=== PATIENT | male | born 1965 | race Hispanic/Latino ===

== ENCOUNTER → 2023-08-27 | Outpatient (CLI) | payer OTHER | END | disposition home or self-care (01) | LOC: OIH 07:42 | PROVIDERS: ATTEND Nurse Practitioner Adult Health | DX: Z13.6 Encounter for screening for cardiovascular disorders (principal) | CPT/HCPCS: 75571 ==

== ENCOUNTER → 2024-11-21 | Outpatient (CLI) | payer BC ==
[2024-11-21 09:34] LABS: CREATININE 1.1 mg/dL (0.5-1.3); GLOMERULAR FILTR. RATE CALC 78.0 mL/min (>90); UREA NITROGEN, BLOOD 18.0 mg/dL (7-18)
== END | disposition home or self-care (01) ==
LOC: LAB 08:07
PROVIDERS: ATTEND Internal Medicine Gastroenterology
DX: R77.2 Abnormality of alphafetoprotein (principal)
CPT/HCPCS: 36415; 82565; 84520

== ENCOUNTER → 2024-11-29 | Outpatient (CLI) | payer BC ==
[~2024-11-29] MED LIST: IOHEXOL-350 75 ML VIAL IV ONE
--- NOTE | 2024-11-29 13:32 | HMCIMG ---
EXAM: CT Abdomen with Intravenous and Oral Contrast CLINICAL HISTORY: 59 year old male with abnormality of alphafetoprotein TECHNIQUE: Axial computed tomography images of the abdomen with intravenous and oral contrast. Dose reduction technique was used including one or more of the following: automated exposure control, adjustment of mA and kV according to patient size, and/or iterative reconstruction. CONTRAST: Standardized dose of oral and IV contrast COMPARISON: None provided. FINDINGS: LUNG BASES: Atelectasis of the lung bases. LIVER: There is no enhancing mass lesion in the liver. GALLBLADDER AND BILE DUCTS: Unremarkable. No calcified stone. No ductal dilation. PANCREAS: Unremarkable. SPLEEN: Unremarkable. ADRENAL GLANDS: Unremarkable. KIDNEYS AND URETERS: Unremarkable. No hydronephrosis or nephrolithiasis. STOMACH AND BOWEL: No obstruction. No wall thickening. No CT evidence of colitis or acute diverticulitis. PERITONEUM: No free fluid. No free air. LYMPH NODES: No lymphadenopathy. VASCULATURE: No aortic aneurysm. ABDOMINAL WALL AND SOFT TISSUES: Unremarkable. BONES: No acute osseous abnormality. IMPRESSION: 1. No enhancing mass lesion in the liver. /[place]
== END | disposition home or self-care (01) ==
LOC: EDSTATUS 11-28 08:30 → RAH 10:50
PROVIDERS: ATTEND Internal Medicine Gastroenterology
DX: R77.2 Abnormality of alphafetoprotein (principal); J98.11 Atelectasis
CPT/HCPCS: 74170; Q9967

== ENCOUNTER → 2025-01-27 | Outpatient (CLI) | payer BC ==
[~2025-01-27] MED LIST changes: +GADOTERATE MEGLUMINE 10 MMOL/20 ML VIAL IV ONE; -IOHEXOL-350 75 ML VIAL IV ONE
--- NOTE | 2025-01-28 06:14 | HMCIMG ---
EXAM: MR Abdomen with and without Intravenous Contrast CLINICAL HISTORY: Abnormal results of liver function studies. TECHNIQUE: Multisequence, multiplanar magnetic resonance images of the abdomen with and without intravenous contrast. CONTRAST: Administered intravenously. COMPARISON: None provided. FINDINGS: LOWER THORAX No pleural effusion. LIVER The liver is enlarged, measuring 16.9 cm in craniocaudal span. Diffuse hepatic steatosis is present. No focal hepatic lesion. GALLBLADDER AND BILE DUCTS No gallstones. No biliary ductal dilatation. PANCREAS Unremarkable. No ductal dilatation. SPLEEN Unremarkable. ADRENALS Unremarkable. KIDNEYS The kidneys are within normal limits. No hydronephrosis or mass. STOMACH AND BOWEL Limited evaluation of the stomach and bowel demonstrates no acute process. LYMPH NODES No lymphadenopathy. VASCULATURE No abdominal aortic aneurysm. IMPRESSION: Enlarged liver with fatty infiltration. No focal hepatic lesion. No acute intra-abdominal abnormality. /[place]
== END | disposition home or self-care (01) ==
LOC: RAH 08:19
PROVIDERS: ATTEND Internal Medicine Gastroenterology
DX: K76.0 Fatty (change of) liver, not elsewhere classified (principal); R77.2 Abnormality of alphafetoprotein; R94.5 Abnormal results of liver function studies
CPT/HCPCS: 74183; A9575